=== PATIENT | male | born 1985 | race Caucasian/White ===

== ENCOUNTER 2018-09-07 19:27 | Outpatient (REF) | payer MEDICAID, SELFPAY ==
[2018-09-07 19:36] LABS: Abs Immature Grans 0.01 k/cumm (0.0-0.09); Absolute Eosinophil Count 0.03 k/cumm (0.0-0.7); Absolute Lymphocyte Count 0.14 k/cumm (1.2-3.4); Absolute Monocyte Count 0.33 k/cumm (0.11-0.7); Absolute Neutrophil Count 1.66 k/cumm (1.2-6.7); Eosinophils % 1.4; HCT 43.7 % (40.0-50.0); HGB 14.9 g/dL (13.5-17.5); Immature Grans % 0.5; Lymphocytes % 6.5; Mean Corp. HGB Concentration 34.1 g/dL (32.0-36.0); Mean Corpuscular Hemoglobin 29.2 pg (27.0-33.0); Mean Corpuscular Volume 85.5 fL (80-95); Mean Platelet Volume 10.4 fL (8.0-11.0); Monocytes % 15.2; Neutrophils % 76.4; Platelet Count 219 x1000/uL (130-400); RBC 5.11 m/cumm (4.50-6.00); RBC Distribution Width 12.9 % (11.8-14.1); White Blood Cell Count 2.17 k/cumm (4.4-10.8)
[2018-09-07 20:03] LABS: ALT 50 U/L (12-78); AST 25 U/L (15-37); Albumin 4.3 g/dL (3.4-5.0); Alkaline Phosphatase 57 U/L (46-116); Anion Gap 9.3 mmol/L (3-11); BUN 19 mg/dL (7-18); Bilirubin, Total 0.6 mg/dL (0.2-1.0); CO2 28.7 mmol/L (21.0-32.0); CREATININE 0.86 mg/dL (0.70-1.30); Calcium 9.2 mg/dL (8.5-10.1); Chloride 104 mmol/L (98-107); Cholesterol 189 mg/dL (50-200); Glucose 90 mg/dL (70-100); HDL Cholesterol 73 mg/dL (40-60); LDL CHOLESTEROL 105 mg/dL (<100); Potassium 4.6 mmol/L (3.5-5.1); Sodium 142 mmol/L (136-145); Total Protein 6.8 g/dL (6.4-8.2); Triglyceride 42 mg/dL (30-150)
== END 2018-09-07 19:47 ==
LOC: NCHCN 19:27
PROVIDERS: Visit Provider Physician Assistant Medical
DX: G35 Multiple sclerosis (principal); Z00.00 Encounter for general adult medical examination without abnormal findings
CPT/HCPCS: 80053; 80061; 83721; 85025

== ENCOUNTER 2020-06-03 21:57 | Outpatient (REF) | payer MEDICAID, SELFPAY ==
[2020-06-03 20:16] LABS: Abs Immature Grans 0.01 10^3/uL (0.0-0.06); Absolute Basophil Count 0.01 10^3/uL (0.0-0.2); Absolute Eosinophil Count 0.03 10^3/uL (0.0-0.7); Absolute Neutrophil Count 5.03 10^3/uL (1.2-6.7); Basophils % 0.2; Eosinophils % 0.5; HCT 41.5 % (40.0-50.0); HGB 14.1 g/dL (13.5-17.5); Immature Grans % 0.2; Lymphocytes % 3.5; MCH 28.5 pg (27.0-33.0); MPV 10.1 fL (8.0-11.0); Neutrophils % 88.6; Nucleated RBC 0 %; Platelet Count 250 10^3/uL (130-400); RBC 4.94 10^6/uL (4.36-5.78); RDW 12.3 % (11.8-14.1); RDW-SD 37.2 fL; WBC 5.68 10^3/uL (4.4-10.8)
[2020-06-03 20:47] LABS: ALT 43 U/L (16-63); AST 21 U/L (15-37); Albumin 4.2 g/dL (3.4-5.0); Alkaline Phosphatase 56 U/L (46-116); Anion Gap 11.5 mmol/L (3-11); BUN 19 mg/dL (7-18); Bilirubin, Total 0.3 mg/dL (0.2-1.0); CO2 25.5 mmol/L (21.0-32.0); Calcium 9.3 mg/dL (8.5-10.1); Chloride 104 mmol/L (98-107); Glucose 137 mg/dL (74-106); Potassium 4.1 mmol/L (3.5-5.1); Sodium 141 mmol/L (136-145); Total Protein 6.8 g/dL (6.4-8.2)
== END 2020-06-03 21:58 | disposition home or self-care (01) ==
LOC: NCHCN 21:57
PROVIDERS: Visit Provider Physician Assistant Medical
DX: G35 Multiple sclerosis (principal)
CPT/HCPCS: 80053; 82306; 85025

== ENCOUNTER 2020-06-15 12:08 | Emergency (ER) | payer MEDICAID, SELFPAY ==
[2020-06-15 12:12] VITALS: BP 154/76; PULSE 65; RESP 18; TEMP 36.4; O2SAT 99
--- NOTE | 2020-06-15 12:37 | ED.GENADUL_ITS ---
Discharge Plan Disposition Patient Disposition: HOME Condition: Good Discharge Details Clinical Impression: Fracture of finger, distal phalanx, right, open Primary Care Provider: Meño Hernandez ED Provider: Radha Bagley Home Meds and New Rx's Prescriptions: New cephalexin 500 mg capsule 500 mg PO QID 7 Days Qty: 28 RF: 0 No Action lamotrigine 100 mg Tablet 100 mg PO DAILY RF: 0 Gilenya 0.5 mg Capsule 240 mg PO DAILY RF: 0 Discharge Instructions Instructions: Finger Fracture (ED) Additional Instructions: Take antibiotic as prescribed until completed unless directed by orthopedics Sutures will need to be removed in 12 days You must change her dressing every 2 days Keep dry Take ibuprofen 600 mg every 8 hours with food Take Tylenol 650 mg every 4-6 hours for breakthrough pain You may elevate and ice as needed for discomfort and swelling This will also help with pain Refrain from using affected hand Return with fever, chills, worsening pain, or with any new or progressing symptoms Discharge Data Discharge Date/Time-TO BE ENTERED AT DEPARTURE: 06/15/20 14:05 Medical Decision Making Keep wounds clean and dry Orthopedic follow-up for Started on Keflex Bulky dressing applied, coagulation achieved Tetanus updated Ibuprofen and Tylenol for pain control Return precautions discussed with patient for , suture removal in 12 days Differential Diagnosis Differential Diagnosis: Laceration, abrasion, contusion, fracture Medical Records Medical records reviewed: Yes I reviewed the patient's medical records. HPI 35-year-old male presents with laceration to right second and third digit from table saw just prior to arrival. He denies any additional injuries. Tetanus was last updated in 2011. Describes the pain as aching. General Date/Time Provider Initiated Documentation: 06/15/20 12:16 . Related Data Home Medications Medication Instructions Recorded Confirmed cephalexin 500 mg PO QID 7 Days #28 cap 06/15/20 fingolimod [Gilenya] 240 mg PO DAILY 06/15/20 06/15/20 lamotrigine 100 mg PO DAILY 06/15/20 06/15/20 Previous Rx's Medication Instructions Recorded cephalexin 500 mg PO QID 7 Days #28 cap 06/15/20 Allergies Allergy/AdvReac Type Severity Reaction Status Date / Time No Known Allergies Allergy Unverified 06/15/20 12:17 General Stated Complaint: Laceration VIVI: 3 Review of Systems Narrative: Review of systems obtained x3 aside from indicated in HPI, no history of CAD, sensation change PFSH Social History Smoking/Tobacco Use Status: Never Smoking risk assessment performed?: Yes Alcohol Intake: current Alcohol Intake frequency: 0-2 drinks per day Drug use: Occasionally Substance use type: marijuana Do you feel safe at home: Yes Do you feel safe in your relationship?: Yes Exam Extrem Hand/finger images: 1. Laceration into nailbed, palpable bony prominence Brisk cap refill, sensation intact 2. Laceration noted into nailbed, brisk capillary refill, sensation intact Other: Range of motion, strength, and sensation intact Course Vital Signs Vital signs: Vital Signs Temperature 36.4 C L 06/15/20 12:12 Pulse 65 06/15/20 12:12 Respiratory Rate 18 06/15/20 12:12 Blood Pressure 154/76 H 06/15/20 12:12 Pulse Oximetry 99 06/15/20 12:12 Temperature 36.4 C L 06/15/20 12:12 Temperature Source Skin 06/15/20 12:12 Pulse 65 06/15/20 12:12 Respiratory Rate 18 06/15/20 12:12 Respiratory Effort Non-Labored 06/15/20 12:23 Blood Pressure 154/76 H 06/15/20 12:12 Blood Pressure Position Sitting 06/15/20 12:12 Pulse Oximetry 99 06/15/20 12:12 Oxygen Delivery Method Room Air 06/15/20 12:12 Oxygen Flow Rate 0 06/15/20 12:12 Pain Level 5 06/15/20 12:23 Procedures Laceration Laceration 1: Site: upper extremity Side (If applicable): right Size (cm): 2.5 Description: irregular Depth: involves muscle layer Local Anesthetic: Lidocaine 1% Amount of anesthesia used (mL): 2.5 Pre-repair: wound explored, irrigated extensively and wound margins revised Skin layer closed with: other Size (cm): 5-0 Number of sutures: 4 Technique: simple, interrupted Subcutaneous layer closed with: vicryl Size: 5-0 Number of sutures: 5 Technique: simple, interrupted Laceration 2: Site: upper extremity Size (cm): 1.5 Description: irregular Depth: involves muscle layer Local Anesthetic: Lidocaine 1% Pre-repair: wound explored Skin layer closed with: nylon Size (cm): 4-0 Number of sutures: 4 Technique: simple, interrupted Subcutaneous layer closed with: vicryl Size: 5-0
--- NOTE | 2020-06-15 12:49 | DI.RAD_ITS ---
EXAM: XR HAND RT LIMITED CLINICAL HISTORY: right second and third digit distal table saw lac. TECHNIQUE: 2D digital imaging was performed. COMPARISON: CR LEFT RING FINGER from 02/25/2014 FINDINGS: There are bandages over the 2nd-index and 3rd-middle fingers. There is a fracture of the tuft of the distal phalanx of the 2nd-index finger. Also a very subtle avulsion injury off the distal tuft of t he distal phalanx of the 3rd finger. There is no metallic foreign body. No other right hand radiogr aphic findings. IMPRESSION: DATA REPOSITORY: RADIATION DOSE DELIVERED:
[2020-06-15] MEDS: Cephalexin 500 MG CAP PO (13:47)
[2020-06-15 14:07] VITALS: BP 149/94; PULSE 57; RESP 16; TEMP 36.4; O2SAT 98
--- NOTE | 2020-06-16 08:10 | NUR.NOTE ---
Addendum entered by Benita Mckeon 06/16/20 08:13: Patient cell # [phone] (2nd contact # [phone]) [facility]: Nursing Note: Patient called 0726 stating that he refused pain medication yesterday. Mortrin and tyenol did not work overnight. Can he get something stronger? [address] Mc who stated that patient needed to return to get stronger pain medication. 0737 Spoke with the patient and he asked if there was something that he could get that was not narcotic that could be called in and would work. 0800 Spoke with José Antonio Tucker who spoke with patient and will do a note on that. Benita Mckeon
== END 2020-06-15 14:05 | disposition home or self-care (01) ==
PROVIDERS: Emergency Provider Physician Assistant; PCP Physician Assistant Medical
DX: S62.630A Displaced fracture of distal phalanx of right index finger, initial encounter for closed fracture (principal); S61.312A Laceration without foreign body of right middle finger with damage to nail, initial encounter; W31.2XXA Contact with powered woodworking and forming machines, initial encounter
CPT/HCPCS: 12032; 90471; 73120

== ENCOUNTER 2021-12-21 14:31 | Outpatient (REF) | payer MEDICAID, SELFPAY ==
[2021-12-21 17:45] LABS: C-Reactive Protein 0.12 mg/dL (0.0-0.3); FREE T4 0.96 ng/dL (0.76-1.46); TSH 2.58 uIU/mL (0.36-3.74)
[2021-12-21 18:25] LABS: Vitamin B12 571 pg/mL (193-986)
[2021-12-21 18:28] LABS: Lithium 0.3 mmol/l (0.6-1.2)
[2021-12-22 17:28] LABS: T3,Free 4.2 pg/mL (2.8-5.3)
== END 2021-12-21 14:32 | disposition home or self-care (01) ==
LOC: NCHCN 14:31
PROVIDERS: PCP Physician Assistant Medical; Visit Provider Physician Assistant Medical
DX: F31.9 Bipolar disorder, unspecified (principal); Z79.899 Other long term (current) drug therapy; G35 Multiple sclerosis; Z51.81 Encounter for therapeutic drug level monitoring
CPT/HCPCS: 80178; 82607; 84439; 84443; 84481; 86140

== ENCOUNTER 2022-03-22 16:33 | Outpatient (REF) | payer MEDICAID, SELFPAY ==
[2022-03-22 19:21] LABS: Lithium 0.4 mmol/l (0.6-1.2)
[2022-03-22 19:33] LABS: Albumin 4.8 g/dL (3.4-5.0); Anion Gap 6.5 mmol/L (3-11); BUN 15 mg/dL (7-18); CO2 28.5 mmol/L (21.0-32.0); CREATININE 1.2 mg/dL (0.70-1.30); Calcium 9.5 mg/dL (8.5-10.1); Chloride 103 mmol/L (98-107); Estimated GFR 80.88 (mL/min/1.73m2); FREE T4 1.21 ng/dL (0.76-1.46); Glucose 75 mg/dL (74-106); PHOSPHORUS 3.7 mg/dL (2.6-4.7); Potassium 4.3 mmol/L (3.5-5.1); Sodium 138 mmol/L (136-145); TSH 1.87 uIU/mL (0.36-3.74)
== END 2022-03-22 16:34 | disposition home or self-care (01) ==
LOC: LBN 16:33
PROVIDERS: PCP Physician Assistant Medical; Visit Provider Nurse Practitioner Family
DX: F10.10 Alcohol abuse, uncomplicated (principal); F31.74 Bipolar disorder, in full remission, most recent episode manic; F13.220 Sedative, hypnotic or anxiolytic dependence with intoxication, uncomplicated; F31.81 Bipolar II disorder; Z51.81 Encounter for therapeutic drug level monitoring; Z79.899 Other long term (current) drug therapy
CPT/HCPCS: 80069; 80178; 84439; 84443

== ENCOUNTER 2022-06-30 15:27 | Outpatient (REF) | payer MEDICAID, SELFPAY ==
[2022-06-30 15:26] LABS: Lithium 0.5 mmol/l (0.6-1.2)
[2022-06-30 15:45] LABS: Anion Gap 6.9 mmol/L (3-11); BUN 13 mg/dL (7-18); CO2 29.1 mmol/L (21.0-32.0); Calcium 9.7 mg/dL (8.5-10.1); Chloride 106 mmol/L (98-107); Estimated GFR 100.03 (mL/min/1.73m2); FREE T4 1.08 ng/dL (0.76-1.46); Glucose 101 mg/dL (74-106); Potassium 4.3 mmol/L (3.5-5.1); Sodium 142 mmol/L (136-145); TSH 2.13 uIU/mL (0.36-3.74)
== END 2022-06-30 15:28 | disposition home or self-care (01) ==
LOC: LBN 15:27
PROVIDERS: PCP Physician Assistant Medical; Visit Provider Nurse Practitioner Family
DX: F10.10 Alcohol abuse, uncomplicated (principal); F31.74 Bipolar disorder, in full remission, most recent episode manic; F31.81 Bipolar II disorder; F13.220 Sedative, hypnotic or anxiolytic dependence with intoxication, uncomplicated; Z79.899 Other long term (current) drug therapy; Z51.81 Encounter for therapeutic drug level monitoring
CPT/HCPCS: 80048; 80178; 84439; 84443

== ENCOUNTER 2022-10-13 15:01 | Outpatient (REF) | payer MEDICAID, SELFPAY ==
[2022-10-13 16:32] LABS: ALT 64 U/L (16-63); AST 29 U/L (15-37); Albumin 3.9 g/dL (3.4-5.0); Alkaline Phosphatase 67 U/L (46-116); Anion Gap 7.4 mmol/L (3-11); BUN 17 mg/dL (7-18); Bilirubin, Total 0.4 mg/dL (0.2-1.0); CO2 26.6 mmol/L (21.0-32.0); Calcium 8.9 mg/dL (8.5-10.1); Chloride 110 mmol/L (98-107); Estimated GFR 100.03 (mL/min/1.73m2); FREE T4 0.94 ng/dL (0.76-1.46); Glucose 103 mg/dL (74-106); Potassium 4.6 mmol/L (3.5-5.1); Sodium 144 mmol/L (136-145); TSH 2.31 uIU/mL (0.36-3.74); Total Protein 6.6 g/dL (6.4-8.2)
[2022-10-13 17:09] LABS: Calculated LDL 109 mg/dL (<100); Cholesterol 192 mg/dL (<200); HDL Cholesterol 71 mg/dL (40-60); Triglyceride 60 mg/dL (<150)
== END 2022-10-13 15:02 | disposition home or self-care (01) ==
LOC: LBN 15:01
PROVIDERS: PCP Physician Assistant Medical; Visit Provider Nurse Practitioner Family
DX: F31.11 Bipolar disorder, current episode manic without psychotic features, mild (principal); R63.5 Abnormal weight gain; Z79.899 Other long term (current) drug therapy; Z51.81 Encounter for therapeutic drug level monitoring
CPT/HCPCS: 80053; 80061; 80178; 84439; 84443

== ENCOUNTER 2022-10-26 15:20 | Outpatient (REF) | payer MEDICAID, SELFPAY ==
[2022-10-26 15:20] LABS: Lithium 0.8 mmol/l (0.6-1.2)
== END 2022-10-26 15:21 | disposition home or self-care (01) ==
LOC: NCHCN 15:20
PROVIDERS: PCP Physician Assistant Medical; Visit Provider Physician Assistant Medical
DX: F31.11 Bipolar disorder, current episode manic without psychotic features, mild (principal); R63.5 Abnormal weight gain; Z79.899 Other long term (current) drug therapy
CPT/HCPCS: 80178

== ENCOUNTER 2023-01-16 13:48 | Outpatient (REF) | payer MEDICAID, SELFPAY ==
[2023-01-16 16:31] LABS: Lithium 0.8 mmol/l (0.6-1.2)
[2023-01-16 16:43] LABS: Anion Gap 9.7 mmol/L (3-11); BUN 12 mg/dL (7-18); CO2 26.3 mmol/L (21.0-32.0); CREATININE 1.1 mg/dL (0.70-1.30); Calcium 10.1 mg/dL (8.5-10.1); Chloride 103 mmol/L (98-107); Estimated GFR 89.22 (mL/min/1.73m2); FREE T4 0.96 ng/dL (0.76-1.46); Glucose 103 mg/dL (74-106); Potassium 4.5 mmol/L (3.5-5.1); Sodium 139 mmol/L (136-145); TSH 2.71 uIU/mL (0.36-3.74)
== END 2023-01-16 13:49 | disposition home or self-care (01) ==
LOC: LBN 13:48
PROVIDERS: PCP Physician Assistant Medical; Visit Provider Nurse Practitioner Family
DX: F31.74 Bipolar disorder, in full remission, most recent episode manic (principal); Z79.899 Other long term (current) drug therapy; Z51.81 Encounter for therapeutic drug level monitoring
CPT/HCPCS: 80048; 80178; 84439; 84443

== ENCOUNTER 2023-04-12 14:54 | Outpatient (REF) | payer MEDICAID, SELFPAY ==
[2023-04-12 16:59] LABS: Anion Gap 6.1 mmol/L (3-11); BUN 11 mg/dL (7-18); CO2 28.9 mmol/L (21.0-32.0); Calcium 9.7 mg/dL (8.5-10.1); Chloride 106 mmol/L (98-107); Estimated GFR 100.03 (mL/min/1.73m2); FREE T4 1.03 ng/dL (0.76-1.46); Glucose 103 mg/dL (74-106); Potassium 4.7 mmol/L (3.5-5.1); Sodium 141 mmol/L (136-145); TSH 1.68 uIU/mL (0.36-3.74)
[2023-04-12 17:07] LABS: Lithium 0.7 mmol/l (0.6-1.2)
== END 2023-04-12 14:55 | disposition home or self-care (01) ==
LOC: LBN 14:54
PROVIDERS: PCP Physician Assistant Medical; Visit Provider Nurse Practitioner Family
DX: F31.74 Bipolar disorder, in full remission, most recent episode manic (principal); Z79.899 Other long term (current) drug therapy
CPT/HCPCS: 80048; 80178; 84439; 84443

== ENCOUNTER 2023-08-31 14:44 | Outpatient (REF) | payer MEDICAID, SELFPAY ==
[2023-08-31 15:46] LABS: Lithium 0.8 mmol/L (0.6-1.2)
== END 2023-08-31 14:45 | disposition home or self-care (01) ==
LOC: NCHCN 14:44
PROVIDERS: PCP Physician Assistant Medical; Visit Provider Physician Assistant Medical
DX: F31.74 Bipolar disorder, in full remission, most recent episode manic (principal); Z51.81 Encounter for therapeutic drug level monitoring; Z79.899 Other long term (current) drug therapy
CPT/HCPCS: 80178

== ENCOUNTER 2023-09-21 08:36 | Outpatient (REF) | payer MEDICAID, SELFPAY ==
[2023-09-21 16:59] LABS: BUN 13 mg/dL (7-18); CREATININE 1.1 mg/dL (0.70-1.30); Calcium 9.4 mg/dL (8.5-10.1); Chloride 106 mmol/L (98-107); Estimated GFR 88.67 (mL/min/1.73m2); Glucose 104 mg/dL (74-106); Potassium 4.1 mmol/L (3.5-5.1); Sodium 141 mmol/L (136-145); TSH 1.69 uIU/Ml (0.36-3.74)
[2023-09-21 17:38] LABS: Vitamin B12 449 pg/mL (193-986)
== END 2023-09-21 08:37 | disposition home or self-care (01) ==
LOC: NCHCN 08:36
PROVIDERS: PCP Physician Assistant Medical; Visit Provider Physician Assistant Medical
DX: F31.9 Bipolar disorder, unspecified (principal)
CPT/HCPCS: 80048; 82607; 84439; 84443

== ENCOUNTER 2024-04-12 15:28 | Outpatient (REF) | payer MEDICAID, SELFPAY ==
[2024-04-12 20:29] LABS: Albumin 4.2 g/dL (3.4-5.0); Anion Gap 8.8 mmol/L (3-11); BUN 13 mg/dL (7-18); CO2 26.2 mmol/L (21.0-32.0); CREATININE 1.2 mg/dL (0.70-1.30); Calcium 9.5 mg/dL (8.5-10.1); Chloride 107 mmol/L (98-107); Estimated GFR 79.88 (mL/min/1.73m2); FREE T4 1.04 ng/dL (0.76-1.46); Glucose 109 mg/dL (74-106); PHOSPHORUS 3.6 mg/dL (2.6-4.7); Potassium 4.8 mmol/L (3.5-5.1); Sodium 142 mmol/L (136-145); TSH 1.68 uIU/mL (0.36-3.74)
[2024-04-12 20:53] LABS: Lithium 0.4 mmol/L (0.6-1.2)
== END 2024-04-12 15:29 | disposition home or self-care (01) ==
LOC: LBN 15:28
PROVIDERS: PCP Physician Assistant Medical; Visit Provider Nurse Practitioner Family
DX: F31.9 Bipolar disorder, unspecified (principal); Z79.899 Other long term (current) drug therapy
CPT/HCPCS: 80069; 80178; 84439; 84443

== ENCOUNTER 2024-09-13 14:13 | Outpatient (REF) | payer MEDICAID, SELFPAY ==
[2024-09-13 15:58] LABS: Lithium 0.5 mmol/L (0.6-1.2)
[2024-09-13 16:13] LABS: Albumin 3.7 g/dL (3.4-5.0); Anion Gap 7.3 mmol/L (3-11); BUN 16 mg/dL (7-18); CO2 26.7 mmol/L (21.0-32.0); CREATININE 0.9 mg/dL (0.70-1.30); Calcium 9.4 mg/dL (8.5-10.1); Chloride 109 mmol/L (98-107); Estimated GFR 112.11 (mL/min/1.73m2); FREE T4 0.95 ng/dL (0.76-1.46); Glucose 96 mg/dL (74-106); PHOSPHORUS 3.6 mg/dL (2.6-4.7); Potassium 4.7 mmol/L (3.5-5.1); Sodium 143 mmol/L (136-145); TSH 1.25 uIU/mL (0.36-3.74)
== END 2024-09-13 14:14 | disposition home or self-care (01) ==
LOC: LBN 14:13
PROVIDERS: PCP Physician Assistant Medical; Visit Provider Nurse Practitioner Family
DX: F31.72 Bipolar disorder, in full remission, most recent episode hypomanic (principal); F10.10 Alcohol abuse, uncomplicated; Z79.899 Other long term (current) drug therapy
CPT/HCPCS: 80069; 80178; 84439; 84443

== ENCOUNTER 2024-09-30 15:58 | Outpatient (REF) | payer MEDICAID, SELFPAY ==
[2024-09-30 16:17] LABS: Albumin 4.1 g/dL (3.4-5.0); Anion Gap 9.5 mmol/L (3-11); BUN 13 mg/dL (7-18); CO2 25.5 mmol/L (21.0-32.0); CREATININE 1.1 mg/dL (0.70-1.30); Calcium 9.3 mg/dL (8.5-10.1); Chloride 107 mmol/L (98-107); Estimated GFR 88.12 (mL/min/1.73m2); Glucose 109 mg/dL (74-106); PHOSPHORUS 3.4 mg/dL (2.6-4.7); Potassium 4.4 mmol/L (3.5-5.1); Sodium 142 mmol/L (136-145)
[2024-09-30 16:24] LABS: Lithium 0.6 mmol/L (0.6-1.2)
== END 2024-09-30 15:59 | disposition home or self-care (01) ==
LOC: LBN 15:58
PROVIDERS: PCP Physician Assistant Medical; Visit Provider Nurse Practitioner Family
DX: F31.72 Bipolar disorder, in full remission, most recent episode hypomanic (principal); F10.10 Alcohol abuse, uncomplicated; Z79.899 Other long term (current) drug therapy
CPT/HCPCS: 80069; 80178

== ENCOUNTER 2024-10-08 20:42 | Outpatient (REF) | payer MEDICAID, SELFPAY ==
[2024-10-08 21:47] LABS: Albumin 3.9 g/dL (3.4-5.0); Anion Gap 10.3 mmol/L (3-11); BUN 13 mg/dL (7-18); CO2 24.7 mmol/L (21.0-32.0); Calcium 9.4 mg/dL (8.5-10.1); Chloride 107 mmol/L (98-107); Glucose 128 mg/dL (74-106); Lithium 0.6 mmol/L (0.6-1.2); PHOSPHORUS 3.4 mg/dL (2.6-4.7); Potassium 4.6 mmol/L (3.5-5.1); Sodium 142 mmol/L (136-145)
== END 2024-10-08 20:43 | disposition home or self-care (01) ==
LOC: LBN 20:42
PROVIDERS: PCP Physician Assistant Medical; Visit Provider Nurse Practitioner Family
DX: F31.72 Bipolar disorder, in full remission, most recent episode hypomanic (principal); F10.10 Alcohol abuse, uncomplicated; Z79.899 Other long term (current) drug therapy
CPT/HCPCS: 80069; 80178